=== PATIENT | male | born 1980 | race Caucasian/White ===

== ENCOUNTER 2020-06-19 13:52 | Emergency (ER) ==
[2020-06-19] MEDS ORDERED: TETANUS & DIPHTHERIA TOX,ADULT 0.5 ML VIAL ONE (14:20)
--- NOTE | 2020-06-19 14:45 | RAD REPORT ---
EXAM DESCRIPTION: CT - CTHCSPWOC - 06/19/2020 2:39 pm CLINICAL HISTORY: FALL, blunt force trauma to the head and neck COMPARISON: No comparisons TECHNIQUE: Axial 5 mm thick images of the head were obtained. Axial 2 mm thick images of the cervic al spine were obtained with sagittal and coronal reconstruction images generated and reviewed. All CT scans are performed using dose optimization technique as appropriate and may include automated exposure control or mA/KV adjustment according to patient size. FINDINGS: No intracranial hemorrhage, mass, edema or acute intracranial finding. No suspicion for ac emili infarction. No extra-axial fluid collections. Mastoid air cells and paranasal sinuses are clear. No globe or orbit abnormality seen. Cervical body height and alignment are normal. No disk space narrowing. No fracture or acute bony abn ormality. Central canal detail is inherently limited. No paraspinal mass or hematoma. Due to technical malfunction is of all thing the PACs imaging system and the [employer] system images were not immediately available for review and reports could not be initially generat ed. IMPRESSION: Negative CT head examination for acute or significant finding. Negative CT cervical spine examination for acute or significant finding.
--- NOTE | 2020-06-20 07:23 | ER ---
Nurse's Notes [facility] Name: Kurt Scanlon Jr Age: 40 yrs Sex: Male : 1980 Arrival Date: 06/19/2020 Time: 14:01 Bed 15 Private MD: Diagnosis: Laceration without foreign body of scalp;Superficial injury of head Presentation: 06/19 14:01 Chief complaint: EMS states: Pallet fell onto top of head while at work prior to ss arrival. Laceration to top of head, bleeding controlled at this time. C/o mild neck pain. C collar in place. Juanito LOC. Coronavirus screen: Client denies travel out of the [place] in the last 14 days. At this time, the client does not indicate any symptoms associated with coronavirus-19. Ebola Screen: Patient denies exposure to infectious person. Patient denies travel to an Ebola-affected area in the 21 days before illness onset. Initial Sepsis Screen: Does the patient meet any 2 criteria? No. Patient's initial sepsis screen is negative. Does the patient have a suspected source of infection? No. Patient's initial sepsis screen is negative. Risk Assessment: Do you want to hurt yourself or someone else? Patient reports no desire to harm self or others. Onset of symptoms was June 19, 2020. 14:01 Method Of Arrival: Ambulatory ss 14:01 Acuity: VENKATESH 4 Triage Assessment: 15:00 General: Appears in no apparent distress. Behavior is calm, cooperative. iw Historical: - Allergies: 14:06 Sulfa (Sulfonamide Antibiotics); ss - Home Meds: 14:06 None [Active]; ss - Immunization history:: Adult Immunizations up to date. - Social history:: Smoking status: Patient denies any tobacco usage or history of. - Family history:: not pertinent. - Hospitalizations: : No recent hospitalization is reported. Screenin:06 Abuse screen: Denies threats or abuse. Denies injuries from another. Nutritional ss screening: No deficits noted. Tuberculosis screening: Never had TB. Fall Risk None identified. Assessment: 14:20 General: Appears in no apparent distress. Behavior is calm, cooperative. Pain: iw Complains of pain in top of head. Neuro: Level of Consciousness is awake, alert, obeys commands, Oriented to person, place, time, situation, Moves all extremities. Full function. Cardiovascular: Patient's skin is warm and dry. Respiratory: Respiratory effort is even, unlabored, Respiratory pattern is regular, symmetrical. Derm: Skin is healthy with good turgor. Musculoskeletal: Range of motion: intact in all extremities. Injury Description: Laceration sustained to top of head is full thickness, 0.5 to 2.5 cm long, was sustained 30-60 minutes ago. a small amount of bleeding noted at this time. Vital Signs: 14:01 BP 149 / 90; Pulse 87; Resp 17; Temp 98.7(O); Pulse Ox 99% on R/A; Weight 124.74 kg; ss Height 5 ft. 8 in. (172.72 cm); Pain 5/10; 14:01 Body Mass Index 41.81 (124.74 kg, 172.72 cm) [place] Coma Score: 14:09 Eye Response: spontaneous(4). Verbal Response: oriented(5). Motor Response: obeys rn commands(6). Total: 15. 14:39 Eye Response: spontaneous(4). Verbal Response: oriented(5). Motor Response: obeys rn commands(6). Total: 15. ED Course: 14:01 Patient arrived in ED. ss 14:01 Bin Louis MD is Attending Physician. rn 14:01 Arm band placed on right wrist. ss 14:03 Triage completed. ss 14:04 Herlinda Olivera, DEMARCUS is Primary Nurse. iw 14:06 Patient has correct armband on for positive identification. Bed in low position. Call ss light in reach. 15:10 Assist provider with laceration repair on top of head that was between 2.6 to 7.5 cm iw using jaqueline. Set up tray. Performed by Bin Louis MD Patient tolerated well. Patient did not have IV access during this emergency room visit. 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 Exp: iw 12/30/2022. Lot #: [id number]. } Route: IM; Site: right deltoid; 17:23 Follow up: Response: No adverse reaction iw Outcome: 14:41 Discharge ordered by . rn 15:29 Discharged to home ambulatory. iw 15:29 Condition: good 15:29 Discharge instructions given to patient, Instructed on discharge instructions, follow up and referral plans. wound care, Demonstrated understanding of instructions, follow-up care, wound care. 15:30 Patient left the ED. iw Signatures: Herlinda Olivera RN RN iw Nieto, Roman, MD MD rn Smirch, Shelby, RN RN ss Corrections: (The following items were deleted from the chart) 14:04 14:01 Acuity: VENKATESH 3 ss ss
--- NOTE | 2020-06-20 07:23 | EDPHYS ---
Physician Documentation [facility] Name: Kurt Scanlon Jr Age: 40 yrs Sex: Male : 1980 Arrival Date: 06/19/2020 Time: 14:01 Bed 15 Private MD: ED Physician Bin Louis HPI: 06/19 14:09 This 40 yrs old Male presents to ER via Ambulatory with complaints of head rn injury/laceration. 14:09 The patient or guardian reports injury, a laceration, pain. The complaints affect the rn top of head. Onset: The symptoms/episode began/occurred just prior to arrival. Severity of symptoms: At their worst the symptoms were mild, in the emergency department the symptoms are unchanged. The patient has not experienced similar symptoms in the past. Reports at work, unknown number of empty pallets fell and hit him on head approx 2-3 ft height above his head, no LOC, got a little dizzy, reports mild neck pain. Remembers all events. NO vomiting or focal neurological complaints. NO headache. No blood thinners. . Historical: - Allergies: 14:06 Sulfa (Sulfonamide Antibiotics); ss - Home Meds: 14:06 None [Active]; ss - Immunization history:: Adult Immunizations up to date. - Social history:: Smoking status: Patient denies any tobacco usage or history of. - Family history:: not pertinent. - Hospitalizations: : No recent hospitalization is reported. ROS: 14:09 Constitutional: Negative for fever, chills, and weight loss, Eyes: Negative for injury, rn pain, redness, and discharge, Neck: + neck pain Cardiovascular: Negative for chest pain, palpitations, and edema, Respiratory: Negative for shortness of breath, cough, wheezing, and pleuritic chest pain, Abdomen/GI: Negative for abdominal pain, nausea, vomiting, diarrhea, and constipation, Back: Negative for injury and pain, MS/Extremity: Negative for injury and deformity, Skin: Negative for injury, rash, and discoloration, Neuro: Negative for headache, weakness, numbness, tingling, and seizure. Exam: 14:09 Constitutional: This is a well developed, well nourished patient who is awake, alert, rn and in no acute distress. Head/Face: 2.5 inch superficial laceration top of scalp, no active bleeding, no depression Eyes: Pupils equal round and reactive to light, extra-ocular motions intact. Lids and lashes normal. Conjunctiva and sclera are non-icteric and not injected. Cornea within normal limits. Periorbital areas with no swelling, redness, or edema. Neck: Ccollar in place, no midline tenderness Respiratory: Speaking full sentences. No increased work of breathing, no retractions or nasal flaring. Skin: Warm, dry MS/ Extremity: Pulses equal, no cyanosis. Neuro: Awake and alert, GCS 15 Vital Signs: 14:01 BP 149 / 90; Pulse 87; Resp 17; Temp 98.7(O); Pulse Ox 99% on R/A; Weight 124.74 kg; ss Height 5 ft. 8 in. (172.72 cm); Pain 5/10; 14:01 Body Mass Index 41.81 (124.74 kg, 172.72 cm) ss [place] Coma Score: 14:09 Eye Response: spontaneous(4). Verbal Response: oriented(5). Motor Response: obeys rn commands(6). Total: 15. 14:39 Eye Response: spontaneous(4). Verbal Response: oriented(5). Motor Response: obeys rn commands(6). Total: 15. Laceration: 14:39 Wound Repair of 2.5cm ( 1.0in ) subcutaneous laceration to top of head. Distal rn neuro/vascular/tendon intact. Wound prep: Extensive cleansing by me, Wound explored. Skin closed with [address] using staple gun. Patient tolerated well. MDM: 14:01 Patient medically screened. rn 14:39 Differential diagnosis: Contusion of Laceration of Intracranial bleed- Concussion. Data rn reviewed: vital signs, nurses notes, radiologic studies, CT scan, and as a result, I will discharge patient. Counseling: I had a detailed discussion with the patient and/or guardian regarding: the historical points, exam findings, and any diagnostic results supporting the discharge/admit diagnosis, radiology results, the need for outpatient follow up, to return to the emergency department if symptoms worsen or persist or if there are any questions or concerns that arise at home. Response to treatment: the patient's symptoms have markedly improved after treatment, and as a result, I will discharge patient. Special discussion: Based on the patient's history, exam and DX evaluation, there is no indication for emergent intervention or inpatient TX. It is understood by the patient/guardian that if the SXs persist or worsen they need to return immediately for re-evaluation. I discussed with the patient/guardian in detail that at this point there is no indication for admission to the hospital. It is understood, however, that if the symptoms persist or worsen the patient needs to return immediately for re-evaluation. 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 Exp: iw 12/30/2022. Lot #: [id number]. } Route: IM; Site: right deltoid; 17:23 Follow up: Response: No adverse reaction iw Disposition: 06/19/20 14:41 Discharged to Home. Impression: Laceration without foreign body of scalp, Superficial injury of head. - Condition is Stable. - Discharge Instructions: Head Injury, Adult, Stitches, [place], or Adhesive Wound Closure. - Work release form, Medication Reconciliation Form, Thank You Letter, Antibiotic Education, Prescription Opioid Use form. - Follow up: Private Physician; When: 10 days; Reason: Wound Recheck, Staple/Suture removal. - Problem is new. - Symptoms have improved. Signatures: Herlinda Olivera RN RN Bin Louis MD MD rn Smirch, Shelby, RN RN ss Corrections: (The following items were deleted from the chart) 14:56 14:39 Wound Repair of 2.5cm ( 1.0in ) subcutaneous laceration to top of head. Distal rn neuro/vascular/tendon intact. Wound prep: Extensive cleansing by nurse, Wound explored. Skin closed with [address] using staple gun. Patient tolerated well. rn 15:30 14:41 06/19/2020 14:41 Discharged to Home. Impression: Laceration without foreign body iw of scalp; Superficial injury of head. Condition is Stable. Forms are Medication Reconciliation Form, Thank You Letter, Antibiotic Education, Prescription Opioid Use. Follow up: Private Physician; When: 10 days; Reason: Wound Recheck, Staple/Suture removal. Problem is new. Symptoms have improved. rn
== END 2020-06-19 15:30 | disposition home or self-care (01) ==
LOC: ER 13:52
PROC: 0JQ00ZZ Repair Scalp Subcutaneous Tissue and Fascia, Open Approach (ICD-10-PCS; principal; 2020-06-19)
PROC: 0JQ00ZZ Repair Scalp Subcutaneous Tissue and Fascia, Open Approach (ICD-10-PCS; 2020-06-19)
DX: S01.01XA Laceration without foreign body of scalp, initial encounter (principal); W20.8XXA Other cause of strike by thrown, projected or falling object, initial encounter; Y93.89 Activity, other specified; Y92.9 Unspecified place or not applicable; Z88.2 Allergy status to sulfonamides
CPT/HCPCS: 70450; 72125; 90471; 90714; 99283

== ENCOUNTER 2020-12-28 10:01 | Inpatient (IN) | payer SELFPAY ==
[2020-12-28 11:57] LABS: Basophils % 1.1 % (0-1.3); Hematocrit 46.9 % (39.6-49.0); Lymphocytes % 22.9 % (15.3-44.8); MPV 8.4 fL (7.6-11.3); RBC Red Blood Cell Count 5.34 M/uL (4.33-5.43)
[2020-12-28 12:15] LABS: Albumin 4.2 g/dL (3.4-5.0); Bilirubin Direct 0.2 mg/dL (0-0.2); Bilirubin Total 1.3 mg/dL (0.2-1.0); Potassium 4.5 mmol/L (3.5-5.1); Protein, Total 8.5 g/dL (6.4-8.2)
--- NOTE | 2020-12-28 12:41 | RAD REPORT ---
EXAM DESCRIPTION: CT - Abdomen Pelvis W Contrast - 12/28/2020 12:11 pm CLINICAL HISTORY: ABD PAIN COMPARISON: No comparisons TECHNIQUE: Biphasic, helical CT imaging of the abdomen and pelvis was performed following 100 ml non -ionic IV contrast. No oral contrast administered. All CT scans are performed using dose optimization technique as appropriate and may include automated exposure control or mA/KV adjustment according to patient size. FINDINGS: No suspicious findings in the lung bases. Patient has diffuse fatty infiltration of the liver with no focal liver lesion. No Gallbladder and bi liary tree are also without suspicious finding. Symmetric renal function is seen with no hydronephrosis or suspicious renal mass. No pyelonephritis o r acute parenchymal process. No bladder abnormalities. No adrenal abnormalities. No gastric dilatation or wall thickening. No small bowel abnormality. Appendicolith is present. Diame ter of the appendix is 10-14 mm and the jimenez of the appendix are slightly thickened and edematous. N o significant periappendiceal inflammatory stranding seen. Findings are still suspicious for early ap pendicitis. No free air, free fluid or pneumatosis. No areas of focal inflammatory stranding seen. No mass or bulky lymphadenopathy. Periumbilical fat only hernia present. No suspicious bony findings. IMPRESSION: The appendix is dilated and contains an appendicolith. There is no measurable periappend iceal stranding. However, findings are suspicious for early appendicitis. Diffuse fatty infiltration of the liver. No other acute or suspicious findings.
--- NOTE | 2020-12-28 12:52 | ER ---
Nurse's Notes [facility] Name: Kurt Scanlon Jr Age: 40 yrs Sex: Male : 1980 Arrival Date: 12/28/2020 Time: 10:01 Bed 3 Private MD: Diagnosis: Acute appendicitis Presentation: 12/28 10:18 Chief complaint: Patient states: Abd pain for 2 days, lower abdomen today with nausea. ll1 TALBOT off/on a few days. No fever. Coronavirus screen: Client denies travel out of the [place] in the last 14 days. Coronavirus screen: Ebola Screen: Patient denies travel to an Ebola-affected area in the 21 days before illness onset. Initial Sepsis Screen: Does the patient meet any 2 criteria? No. Patient's initial sepsis screen is negative. Does the patient have a suspected source of infection? Yes: Acute abdominal pain. Risk Assessment: Do you want to hurt yourself or someone else? Patient reports no desire to harm self or others. Onset of symptoms was December 26, 2020. 10:18 Method Of Arrival: Ambulatory ll1 10:18 Acuity: VENKATESH 3 ll1 Historical: - Allergies: 10:22 Sulfa (Sulfonamide Antibiotics); ll1 10:22 Morphine; ll1 - PMHx: 10:22 None; ll1 - PSHx: 10:22 L arm fx-Plate placed; ll1 - Immunization history:: Flu vaccine is not up to date. - Social history:: Smoking status: Patient denies any tobacco usage or history of. Screenin:30 Abuse screen: Denies threats or abuse. Denies injuries from another. Nutritional sv screening: No deficits noted. Tuberculosis screening: No symptoms or risk factors identified. Fall Risk None identified. Assessment: 11:40 General: Appears in no apparent distress. comfortable, obese, well groomed, well sv developed, well nourished, Behavior is calm, cooperative, appropriate for age. Pain: Complains of pain in abdomen Pain currently is 7 out of 10 on a pain scale. Neuro: Level of Consciousness is awake, alert, obeys commands, Oriented to person, place, time, situation, Moves all extremities. Full function Gait is steady. Respiratory: Respiratory effort is even, unlabored, Respiratory pattern is regular, symmetrical. GI: Abdomen is obese, Abd is soft X 4 quads. Derm: Skin is intact, Skin is pink, warm \T\ dry. Musculoskeletal: Range of motion: intact in all extremities. 13:19 Reassessment: Patient appears in no apparent distress at this time. No changes from sv previously documented assessment. Patient and/or family updated on plan of care and expected duration. Pain level reassessed. Patient is alert, oriented x 3, equal unlabored respirations, skin warm/dry/pink. 13:45 Reassessment: Patient appears in no apparent distress at this time. No changes from sv previously documented assessment. Patient and/or family updated on plan of care and expected duration. Pain level reassessed. Patient is alert, oriented x 3, equal unlabored respirations, skin warm/dry/pink. Vital Signs: 10:18 BP 167 / 105; Pulse 72; Resp 17; Temp 98.4; Pulse Ox 99% ; Weight 136.08 kg; Height 5 ll1 ft. 8 in. (172.72 cm); Pain 7/10; 12:00 BP 132 / 101; Pulse 67; Resp 16; Pulse Ox 96% on R/A; sv 10:18 Body Mass Index 45.61 (136.08 kg, 172.72 cm) ll1 ED Course: 10:01 Patient arrived in ED. as 10:21 Triage completed. ll1 10:22 Arm band placed on. ll1 11:30 Alexia Lugo RN is Primary Nurse. sv 11:30 Gianluca Mari MD is Attending Physician. [facility] 11:30 Jeremy Smith PA is PHCP. jr8 11:30 Patient has correct armband on for positive identification. Placed in gown. Bed in low sv position. Call light in reach. Pulse ox on. NIBP on. Door closed. Head of bed elevated. 11:42 Nurse Practitioner and/or Physician Assembly Machine Operator to see patient. sv 11:45 Inserted saline lock: 22 gauge in right antecubital area, using aseptic technique. sv ,using aseptic technique. diffusics, done by [facility] Blood collected. 11:56 Basic Metabolic Panel Sent. sv 12:11 CT Abd/Pelvis - IV Contrast Only In Process Unspecified. EDMS 12:51 Juan R Worthington MD is Hospitalizing Provider. jr8 13:45 No provider procedures requiring assistance completed. Patient admitted, IV remains in sv place. intact. Administered Medications: 13:19 Drug: Zosyn 3.375 grams Route: IVPB; Infused Over: 60 mins; Site: right antecubital; sv Outcome: 12:51 Decision to Hospitalize by Provider. maxime 13:45 Admitted to OR accompanied by nurse, via wheelchair, with chart, Report called to millicent Hale RN 13:45 Condition: stable 13:45 Instructed on the need for admit. 13:46 Patient left the ED. Signatures: Dispatcher [employer] EDAlexia Marquez, RN RN Gianluca Hester MD MD cha Martinez, Amelia as Roszak, Josh, BERTA PA jr8 Yumiko Calderon, DEMARCUS RN ll1
--- NOTE | 2020-12-28 12:52 | EDPHYS ---
Physician Documentation [facility] Name: Kurt Scanlon Jr Age: 40 yrs Sex: Male : 1980 Arrival Date: 12/28/2020 Time: 10:01 Bed 3 Private MD: ED Physician Gianluca Mari HPI: 12/28 12:27 This 40 yrs old Male presents to ER via Ambulatory with complaints of jr8 Abdominal Pain, Nausea, Headache. 12:27 The patient presents with abdominal pain in the lower abdomen. Onset: The jr8 symptoms/episode began/occurred acutely, today. The symptoms do not radiate. Associated signs and symptoms: Pertinent positives: nausea. The symptoms are described as crampy. Modifying factors: The symptoms are alleviated by nothing, the symptoms are aggravated by nothing. Severity of pain: At its worst the pain was moderate in the emergency department the pain is unchanged. The patient has not experienced similar symptoms in the past. The patient has not recently seen a physician. Historical: - Allergies: 10:22 Sulfa (Sulfonamide Antibiotics); ll1 10:22 Morphine; ll1 - PMHx: 10:22 None; ll1 - PSHx: 10:22 L arm fx-Plate placed; ll1 - Immunization history:: Flu vaccine is not up to date. - Social history:: Smoking status: Patient denies any tobacco usage or history of. ROS: 12:27 Eyes: Negative for injury, pain, redness, and discharge, ENT: Negative for injury, jr8 pain, and discharge, Neck: Negative for injury, pain, and swelling, Cardiovascular: Negative for chest pain, palpitations, and edema, Respiratory: Negative for shortness of breath, cough, wheezing, and pleuritic chest pain, Back: Negative for injury and pain, MS/Extremity: Negative for injury and deformity, Skin: Negative for injury, rash, and discoloration, Neuro: Negative for headache, weakness, numbness, tingling, and seizure. 12:27 Abdomen/GI: Positive for abdominal pain, nausea, Negative for vomiting, diarrhea, constipation, abdominal distension, anorexia, dysphagia, hematemesis, black/tarry stool, rectal pain, rectal bleeding, bowel incontinence, flatulence. Exam: 12:27 Constitutional: This is a well developed, well nourished patient who is awake, alert, jr8 and in no acute distress. Cardiovascular: Regular rate and rhythm with a normal S1 and S2. No gallops, murmurs, or rubs. Normal PMI, no JVD. No pulse deficits. Respiratory: Lungs have equal breath sounds bilaterally, clear to auscultation and percussion. No rales, rhonchi or wheezes noted. No increased work of breathing, no retractions or nasal flaring. Back: No spinal tenderness. No costovertebral tenderness. Full range of motion. Skin: Warm, dry with normal turgor. Normal color with no rashes, no lesions, and no evidence of cellulitis. MS/ Extremity: Pulses equal, no cyanosis. Neurovascular intact. Full, normal range of motion. Neuro: Awake and alert, GCS 15, oriented to person, place, time, and situation. Cranial nerves II-XII grossly intact. Motor strength 5/5 in all extremities. Sensory grossly intact. 12:27 Abdomen/GI: Inspection: obese Bowel sounds: active, all quadrants, Palpation: soft, in all quadrants, mild abdominal tenderness, in the right lower quadrant and left lower quadrant, mass, is not appreciated, rebound tenderness, is not appreciated, voluntary guarding, is not appreciated, involuntary guarding, is not appreciated, no appreciated organomegaly, Indicators: McBurney's point is not tender, Humphrey's sign is negative, Rovsing's sign is negative, Liver: tenderness, is not appreciated. Vital Signs: 10:18 BP 167 / 105; Pulse 72; Resp 17; Temp 98.4; Pulse Ox 99% ; Weight 136.08 kg; Height 5 ll1 ft. 8 in. (172.72 cm); Pain 7/10; 12:00 BP 132 / 101; Pulse 67; Resp 16; Pulse Ox 96% on R/A; sv 10:18 Body Mass Index 45.61 (136.08 kg, 172.72 cm) ll1 MDM: 11:30 Patient medically screened. yolis 12:50 Data reviewed: vital signs, nurses notes, lab test result(s), radiologic studies, CT jr8 scan. Data interpreted: Pulse oximetry: on room air is 96 %. Interpretation: normal. Counseling: I had a detailed discussion with the patient and/or guardian regarding: the historical points, exam findings, and any diagnostic results supporting the discharge/admit diagnosis, lab results, radiology results, the need for further work-up and treatment in the hospital. ED course: Dr. Worthington contacted and will see patient for surgery . 12/28 11:45 Order name: Basic Metabolic Panel jr8 12/28 11:45 Order name: CBC with Diff; Complete Time: 12:06 jr8 12/28 11:45 Order name: Hepatic Function; Complete Time: 12:19 jr8 12/28 11:45 Order name: Lipase; Complete Time: 12:19 jr8 12/28 11:45 Order name: Basic Metabolic Panel; Complete Time: 12:19 EDMS 12/28 11:46 Order name: CT Abd/Pelvis - IV Contrast Only; Complete Time: 12:50 jr8 12/28 11:45 Order name: IV Saline Lock; Complete Time: 11:56 8 12/28 11:45 Order name: Labs collected and sent; Complete Time: 11:56 [facility] Administered Medications: 13:19 Drug: Zosyn 3.375 grams Route: IVPB; Infused Over: 60 mins; Site: right antecubital; sv Disposition: 12/29 05:39 Co-signature as Attending Physician, Gianluca Mari MD I agree with the assessment and yolis plan of care. Disposition: 12/28/20 12:51 Hospitalization ordered by Juan R Worthington for Observation. Preliminary diagnosis is Acute appendicitis. - Bed requested for Telemetry/MedSurg (observation). - Status is Observation. sv - Condition is Stable. - Problem is new. - Symptoms are unchanged. Signatures: Dispatcher [employer] [facility] Alexia Lugo RN RN sv Anderson, Corey, MD MD cha Roszak, Josh, PA PA jr8 Yumiko Calderon RN RN ll1 Corrections: (The following items were deleted from the chart) 12/28 13:46 12:51 Hospitalization Ordered by Juan R Worthington MD for Observation. Preliminary sv diagnosis is Acute appendicitis. Bed requested for Telemetry/MedSurg (observation). Status is Observation. Condition is Stable. Problem is new. Symptoms are unchanged. jr8
[2020-12-28] MEDS ORDERED: PIPER/TAZO/NS 3.375gm 3.375 GM/100 ML BAG ONE (13:12)
[2020-12-28] MEDS ORDERED: Ringers Lactate 1,000 ML IV ONE (14:11)
[2020-12-28] MEDS ORDERED: ONDANSETRON 4 MG/2 ML VIAL IV PRN ×2 (14:18→16:33)
[2020-12-28] MEDS ORDERED: ACETAMINOPHEN 500 MG TAB PO PRN (14:18)
[2020-12-28] MEDS ORDERED: FENTANYL CITR 100 MCG/2 ML IV PRN (14:18)
[2020-12-28] MEDS: D5 0.45 NS 1,000 ML IV SCH ×2 (14:18→17:56)
--- NOTE | 2020-12-28 14:59 | P.HP ---
Date of Service: 12/28/20 PC: This 40-year-old male presents to the emergency room with severe right lower quadrant abdominal pain for diagnosis and treatment. HPC: Patient began to feel uncomfortable yesterday evening. Pain intensified throughout the night. Today he fatty could hardly walk and had located to the right lower quadrant. PMH: Negative PSHx: Denies any prior history is SOC: States is allergic to sulfa and morphine SYS REVIEW: No cough, some wheeze, shortness of breath. No chest pain or palpitations. Denies any urinary complaints O/E awake alert comfortable at the moment HEENT: Not jaundice Chest: Chest movement equal bilateral ABD: Saw does have guarding with mild rebound in the right lower quadrant LOCO: Intact DATA: CT scan supports clinical diagnosis of acute abdomen with appendicitis IMPRESSION: Acute abdomen with appendicitis PLAN: I will take him the operating room for laparoscopic possible open ap pendectomy. The risks of this procedure have been discussed. The possibility of bleeding, infection, injury to bowel and surrounding structures were explained. The possibility abscess formation and need for further surgeries and procedures was described. He understands and wants us to proceed.
[2020-12-28] MEDS ORDERED: SUCCINYLCHOLINE 20 MG/ML (10 ML) IV ONE (15:04)
[2020-12-28] MEDS ORDERED: MIDAZOLAM HCL 2 MG/2 ML INJ ONE (15:07)
[2020-12-28] MEDS ORDERED: propofoL 200 MG/20 ML VIAL IV ONE (15:07)
[2020-12-28] MEDS ORDERED: FENTANYL CITR 250 MCG/5 ML ONE (15:07)
[2020-12-28] MEDS ORDERED: ROCURONIUM 50 MG/5 ML VIAL IV ONE (15:07)
[2020-12-28] MEDS ORDERED: NEOSTIGMINE 1 MG/ML -5 ML ONE (16:16)
[2020-12-28] MEDS ORDERED: GLYCOPYRROLATE 0.2 MG/ML SYR ONE (16:16)
--- NOTE | 2020-12-28 16:24 | P.OP ---
Preoperative diagnosis: Acute abdomen with appendicitis Postoperative diagnosis: The same Primary procedure: Laparoscopic appy and Secondary procedure: Saira block Anesthesia: General Estimated blood loss: Less than 10 cc Specimen: 1 gallbladder and contents Findings: Acutely inflamed appendix Operative Technique: The patient brought the operating room placed supine on the table. After the induction of adequate general endotracheal anesthesia, there the abdomen was prepped with a DuraPrep solution, and he was draped in usual aseptic manner. Subumbilical incision was made. This was brought down through the skin and subcutaneous tissue. The Visiport was used to enter the peritoneal cavity and created pneumoperitoneum to approximately 12 mm of mercury. Under direct vision a 5 mm trocar was placed in the right upper quadrant, and another in the lower midline. We could visualize the intestinal contents. With the patient placed in reverse Trendelenburg and rolled to his left. The right lower quadrant was visible. The appendix was not easily seen. It was grasped we could see its attachment to the cecum. The appendix was obviously acutely inflamed. An opening was made in the window of the appendix mesentery. The linear Stapler was now introduced into the peritoneal cavity after converting our 10 mm to a 12 at the emboli kiss. The cartridge placed across the base of the appendix as junction with the cecum. The instrument was fired. At this point a vascular reload was taken in place across the mesentery of the appendix. The instrument was fired. The appendix is now been attached. It was placed into an Endo-Catch and brought out through the umbilical trocar site. Attention was now turned towards the right upper quadrant. Using 0.25% Marcaine. A TA PP block was done. Attention was turned towards right lower quadrant. Adequate hemostasis had been ensured. Attention was now turned towards the emboli kiss. With the trocar removed we were now able approximate the fashion this area using the Endo Close an absorbable suture. A small amount of mesentery, was adherent in this area. It was gently taken down using a grasper. At this point the pneumoperitoneum was collapsed, the trocars removed, and the suture tied. Paris were then applied to the skin At the end of procedure he was in a stable condition when sent to the recovery room. Needle sponge instrument count were correct. No drains were placed. Transferred to: Recovery Room Condition: Good
[2020-12-28] MEDS: FENTANYL CITR 100 MCG/2 ML ONE ×2 (16:40→16:48)
[2020-12-28] MEDS ORDERED: KETOROLAC 30 MG/ML INJ ONE (16:56)
[2020-12-28 17:01] VITALS: O2SAT 98
[2020-12-28 18:13] VITALS: BMI 45.6
[2020-12-28] MEDS ORDERED: PIPER/TAZO/NS 3.375gm 6.750 GM/200 ML BAG ONE (20:42)
[2020-12-28] MEDS: PIPER/TAZO/NS 3.375gm 3.375 GM/100 ML BAG IVPB SCH (21:00)
[2020-12-28] MEDS: HYDROCODONE/APAP 7.5/325 MG TAB PO PRN (21:05)
[2020-12-29] MEDS: PIPER/TAZO/NS 3.375gm 3.375 GM/100 ML BAG IVPB SCH ×3 (00:43→17:00)
[2020-12-29] MEDS: HYDROCODONE/APAP 7.5/325 MG TAB PO PRN ×2 (04:56→09:49)
[2020-12-29] MEDS: D5 0.45 NS 1,000 ML IV SCH ×2 (05:42→10:18)
[2020-12-29] MEDS ORDERED: INFLUENZA VACCINE (for 3y+) 0.5 ML DOSE IMVAC ONE (08:00)
--- NOTE | 2020-12-29 15:26 | P.PN ---
Date of Service: 12/29/20 S: Patient is better today, has been up ambulating, tolerating a diet, voiding on his own. O: Vital signs are stable, incisions are clean A: Surgically stable P: I discussed the surgical findings with the patient. We explained the have about a small umbilical hernia that was approximated using a suture. He has been advised on his diet, he will ambulated home, he may shower as needed. Should he have any questions or problems in will return to emergency room. Otherwise he has will call for appointment at my office for next Friday. He understands and wants to proceed. He has declined pain medicine as he does not like the feeling of when he takes narcotics able use the there acetaminophen or ibuprofen at home.
--- NOTE | 2020-12-29 15:31 | P.DS ---
Admission Date: 12/29/20 Discharge Date: 12/29/20 Disposition: ROUTINE DISCHARGE Discharge Condition: GOOD Procedures: Laparoscopic appendectomy Brief History of Present Illness: Patient presents emergency room with severe right lower quadrant abdominal pain for diagnosis and treatment. Hospital Course: Patient was evaluated emergency room. He was found have early appendicitis. He was admitted for observation pain control. He was brought to the operating room Re underwent a laparoscopic appendectomy. He tolerated the procedure well. Today he is up ambulating, tolerating a diet, and voiding on his own. He is deemed fit for discharge. Vital Signs/Physical Exam: Temp Pulse Resp BP Pulse Ox 98.5 F 84 17 121/65 95 12/29/20 12:00 12/29/20 12:00 12/29/20 12:00 12/29/20 12:00 12/29/20 12:00 Laboratory Data at Discharge: WBC 8.50 K/uL (4.3-10.9) 12/28/20 11:45 Hgb 16.2 g/dL (13.6-17.9) 12/28/20 11:45 Hct 46.9 % (39.6-49.0) 12/28/20 11:45 Plt Count 258 K/uL (152-406) 12/28/20 11:45 Sodium 137 mmol/L (136-145) 12/28/20 11:45 Potassium 4.5 mmol/L (3.5-5.1) 12/28/20 11:45 BUN 13 mg/dL (7-18) 12/28/20 11:45 Creatinine 1.23 mg/dL (0.55-1.3) 12/28/20 11:45 Glucose 93 mg/dL (74-106) 12/28/20 11:45 Total Bilirubin 1.3 mg/dL (0.2-1.0) H 12/28/20 11:45 AST 58 U/L (15-37) H 12/28/20 11:45 ALT 134 U/L (12-78) H 12/28/20 11:45 Alkaline Phosphatase 69 U/L (45-117) 12/28/20 11:45 Lipase 77 U/L (73-393) 12/28/20 11:45 Home Medications: NK [No Home Meds] 12/28/20 Physician Discharge Instructions: Soft mechanical diet at home, advanced as tolerated. Milk of magnesium p.r.n. constipation. He may shower, change dressings as needed. Any questions or problems, go to the emergency room, or contact me. Call Friday for a once a appointment to have the jaqueline removed. Any questions or problems, go to the emergency room, or contact me. Diet: Regular Activity: Ad juany Followup: NONE,NONE [Primary Care Provider] -
[2020-12-29 16:59] VITALS: BP 136/71; TEMP 100.1
== END 2020-12-29 17:44 | disposition home or self-care (01) | DRG 343 ==
LOC: ER 10:01 → ERHOLD 13:29 → 2ND 15:40 → OBSVTOIN 12-29 09:17
PROVIDERS: ADMIT Surgery; ATTEND Surgery
PROC: 0DTJ4ZZ Resection of Appendix, Percutaneous Endoscopic Approach (ICD-10-PCS; principal; 2020-12-28 12:30)
DX: K35.80 Unspecified acute appendicitis (principal); Z88.5 Allergy status to narcotic agent; Z88.1 Allergy status to other antibiotic agents
CPT/HCPCS: 36415; 74177; 80048; 80076; 82565; 83690; 85025; 88304; 94010; 96374; 99285; G0378; J0330; J2250; J2405; J2543; J2704; J2710; J3010; J7120; J7799; Q9967